=== PATIENT | female | born 1960 | race Caucasian/White ===

== ENCOUNTER → 2018-11-30 | Outpatient (CLI) | payer BC | END | disposition home or self-care (01) | LOC: LAB EV 18:03 → LAB SHORT 18:03 | DX: N39.0 Urinary tract infection, site not specified (principal) | CPT/HCPCS: 87086 ==

== ENCOUNTER 2020-03-18 09:09 | Day surgery (SDC) | payer OTHER ==
[~2020-03-18] VITALS: Ht 160 cm; Wt 67.0 kg
[~2020-03-18 09:09] MED LIST: L-LYSINE500 MG PO; MULTIVITAMINS1 EAC3 PO; TUMS500 MG PO; VITAMIN D31000 UNI1 PO; Vitamin B-Comp1 EACH PO
== END 2020-03-18 11:22 | disposition home or self-care (01) ==
LOC: ORSCSDS 09:09
PROVIDERS: Surgery
PROC: 0DJD8ZZ Inspection of Lower Intestinal Tract, Via Natural or Artificial Opening Endoscopic (ICD-10-PCS; principal; 2020-03-18 10:30)
DX: Z12.11 Encounter for screening for malignant neoplasm of colon (principal); Z79.899 Other long term (current) drug therapy
CPT/HCPCS: J2704; J7120